=== PATIENT | female | born 1950 | race Caucasian/White ===

== ENCOUNTER → 2017-06-13 | Outpatient (CLI) | payer MEDICARE, OTHER ==
[~2017-06-13] MED LIST: ACET500T68 PO; ASPI-715 PO; ASPI81TA94 PO; CALC-852 PO; CYCL1DRO6 OP; METO25TA23 PO; METO50TA19 PO; MULT-1367 PO; MULT-865 PO; TRAM-420 PO; WARF-18 PO; WARF1TAB63 PO; WARF3TAB43 PO
[2017-06-13 10:03] LABS: INR 2.88
== END ==
LOC: LAB 09:35
PROVIDERS: ATTEND Emergency Medicine
DX: Z51.81 Encounter for therapeutic drug level monitoring (principal); Z79.01 Long term (current) use of anticoagulants
CPT/HCPCS: 36415; 85610

== ENCOUNTER 2017-06-20 10:00 | Outpatient (RCR) | payer MEDICARE, OTHER ==
[2017-03-23 12:02] VITALS: BP 117/78
[2017-03-23 12:12] VITALS: BP 118/80
--- NOTE | 2017-03-23 12:45 | CARDIAC REHAB PLAN OF CARE ---
Physician: Julia Dickson MD Patient is being seen: Jh Mauricio Medical Diagnosis: MVR Date of Initial Evaluation: 2016 Date patient was last seen: SHORT TERM GOALS Short Term Goals Due Date: 04/23/17 Short Term Goals: 67 year old female phase II patient comes to cardiac rehab after having mitral valve replacement on 2016. Patient has known since in her 30's that the Mitral Valve was going to need repaired or replaced at some point. Patient also treated for a tachycardic rhythm with ablation in 2007. Patient is healthy otherwise and will be able to follow the cardiac rehab protocol with caution initially during weight lifting with patient being on a 5 pound upper weight limit post open heart surgery. Patient will maintain a consistent cardio exercise of at least 150 minutes each week of cardio type exercise and will add in weight resistance exercise at least twice a week. Patient will continue to eat heart healthy meals. Short Term Goals Met: Short Term Goals Not Met Due To: SNF GOALS Detention Goal Due Date: 05/23/17 [place] Goals: nursing home goals are to continue to maintain that consistent cardio exercise each week increasing duration and intensity of exercise. Patient will also add in the weight resistance exercise at least twice a week, and maintain heart healthy eating habits. Rolls Baker Goals Met: Detention Goals Not Met Due To: PATIENT'S GOALS Patient Goals Due Date: 04/23/17 Patient Goals: Patient wants to be able to return to running 5K and 10K's. Patient Goals Met: Patient Goals Not Met Due To: Cardiac Rehabilitation Plan of Care Comment: Cardiac rehab staff will monitor, record, and evaluate vitals, ECG, and exercise results to provide the best plan of care for the patient during the 36 visit phase II program. CR staff will educate and motivate the patient during visits for rehab. TAMIKA
[2017-03-25 21:12] VITALS: BP 104/68
[2017-03-25 21:14] VITALS: BP 104/70
[2017-03-28 13:46] VITALS: BP 118/78
[2017-03-28 13:59] VITALS: BP 102/68
[2017-03-30 17:40] VITALS: BP 110/74
[2017-03-30 17:41] VITALS: BP 102/64
[2017-04-01 13:08] VITALS: BP_SYST 116; BP_SYST 118; BP_DIAS 68
[2017-04-04 13:07] VITALS: BP 106/64
[2017-04-04 13:08] VITALS: BP 116/62
[2017-04-06 13:03] VITALS: BP_SYST 116; BP_SYST 126; BP_DIAS 74; BP_DIAS 78
[2017-04-08 17:45] VITALS: BP 110/74
[2017-04-08 17:47] VITALS: BP 114/70
[2017-04-11 17:21] VITALS: BP 112/68
[2017-04-11 17:22] VITALS: BP 122/74
[2017-04-13 17:20] VITALS: BP 120/78
[2017-04-13 17:22] VITALS: BP 110/68
[2017-04-15 13:19] VITALS: BP 128/80
[2017-04-15 13:20] VITALS: BP 118/62
[2017-04-18 12:48] VITALS: BP 110/76
[2017-04-18 12:49] VITALS: BP 116/70
[2017-04-20 12:53] VITALS: BP_SYST 110; BP_SYST 116; BP_DIAS 70; BP_DIAS 76
--- NOTE | 2017-04-21 15:57 | CARDIAC REHAB PLAN OF CARE ---
Physician: Randolph BROWN Patient is being seen: Jh Mauricio Medical Diagnosis: MVR Date of Initial Evaluation: 03/23/17 SHORT TERM GOALS Short Term Goals Due Date: 05/21/17 Short Term Goals: 67 year old female phase II patient comes to cardiac rehab after having mitral valve replacement on 2016. Patient has known since in her 30's that the Mitral Valve was going to need repaired or replaced at some point. Patient also treated for a tachycardic rhythm with ablation in 2007. Patient is healthy otherwise and will be able to follow the cardiac rehab protocol with caution initially during weight lifting with patient being on a 5 pound upper weight limit post open heart surgery. Patient will maintain a consistent cardio exercise of at least 150 minutes each week of cardio type exercise and will add in weight resistance exercise at least twice a week. Patient will continue to eat heart healthy meals. Short Term Goals Met: Patient has made 13 visits to cardiac rehab and completes up to 45 minutes of cardio exercise at MET levels of 4.5-5.3. Patient also includes 2-3 pound dumbbell resistance training. During exercise SPO2 levels are maintained in the 90's on room air and the satellite project site monitor shows a ST with occasional ectopy. Short Term Goals Not Met Due To: APPLICATION SYSTEMS ENGINEER GOALS Assisted Goal Due Date: 06/21/17 Ditcher Goals: watermelon inspector goals are to maintain that consistent cardio exercise each week along with weight resistence type exercise at least twice a week. Patient will continue to eat heart healthy meals. Ditcher Goals Met: Patient has shown increases in duration and intensity of exercise. Assisted Goals Not Met Due To: PATIENT'S GOALS Patient Goals Due Date: 05/21/17 Patient Goals: Patient goals remain to be able to return to running 5 and 10k's. Patient Goals Met: The patient remains motivated by exercise results and is gaining confidence in her health since her valve replacement procedure. Patient Goals Not Met Due To: Cardiac Rehabilitation Plan of Care Comment: Cardiac rehab staff will continue to monitor, record, and evaluate vitals, ECG, and exercise results to provide the best plan of care throughout the phase II program. CR staff will motivate and educate the patient during visits for rehab. TAMIKA
[2017-04-22 13:30] VITALS: BP 108/78
[2017-04-22 13:31] VITALS: BP 110/54
[2017-04-25 17:15] VITALS: BP 122/80
[2017-04-25 17:16] VITALS: BP 104/64
[2017-04-27 17:59] VITALS: BP 104/74
[2017-04-27 18:00] VITALS: BP 98/64
[2017-05-02 13:24] VITALS: BP_SYST 112; BP_SYST 122; BP_DIAS 54; BP_DIAS 60
[2017-05-04 13:11] VITALS: BP 132/78
[2017-05-04 13:12] VITALS: BP 128/64
[2017-05-06 17:30] VITALS: BP 124/80
[2017-05-06 17:31] VITALS: BP 104/60
[2017-05-09 17:16] VITALS: BP 118/78
[2017-05-09 17:17] VITALS: BP 104/78
[2017-05-13 13:08] VITALS: BP_SYST 100; BP_SYST 116; BP_DIAS 64; BP_DIAS 74
[2017-05-16 13:04] VITALS: BP 120/70
[2017-05-16 13:05] VITALS: BP 104/56
[2017-05-18 12:44] VITALS: BP 118/64
[2017-05-18 12:45] VITALS: BP 108/70
[2017-05-23 17:28] VITALS: BP 108/62
[2017-05-23 17:30] VITALS: BP 100/68
--- NOTE | 2017-05-23 18:54 | CARDIAC REHAB PLAN OF CARE ---
Physician: Randolph BROWN Patient is being seen: Jh Mauricio Medical Diagnosis: MVR Date of Initial Evaluation: 03/23/17 SHORT TERM GOALS Short Term Goals Due Date: 06/23/17 Short Term Goals: 67 year old female phase II patient comes to cardiac rehab after having mitral valve replacement on 2016. Patient has known since in her 30's that the Mitral Valve was going to need repaired or replaced at some point. Patient also treated for a tachycardic rhythm with ablation in 2007. Patient is healthy otherwise and will be able to follow the cardiac rehab protocol with caution initially during weight lifting with patient being on a 5 pound upper weight limit post open heart surgery. Patient will maintain a consistent cardio exercise of at least 150 minutes each week of cardio type exercise and will add in weight resistance exercise at least twice a week. Patient will continue to eat heart healthy meals. Short Term Goals Met: Patient has completed 24 visits to cardiac rehab and tolerates 42 minutes of cardio exercise at levels of 4.0-5.7 METs. Patient also includes weight resistance exercise. During exercise SPO2 levels are maintained in the 90's on room air and the bus monitor shows a ST with an occasional PVC and rates up to 116. Short Term Goals Not Met Due To: CARE HOME GOALS Half-Way Goal Due Date: 07/24/17 Pasta Maker Goals: watermelon inspector goals are to remain consistent with following the exercise protocol of at least 150 minutes of a moderate level or 75 minutes at an intense level, along with weight resistance at least twice a week. Patient will also continue to eat heart healthy meals. Pasta Maker Goals Met: Patient has improved duration and intensity of exercise. Pasta Maker Goals Not Met Due To: PATIENT'S GOALS Patient Goals Due Date: 06/23/17 Patient Goals: Patient goals are to return to running 5 and 10k's. Patient Goals Met: Patient has improved cardio health to be able to run a 5k, but the stability of the sternum feels uncertain to the patient when attempting to run. Patient Goals Not Met Due To: Cardiac Rehabilitation Plan of Care Comment: Cardiac Rehab staff will continue to monitor, record, and evaluate vitals, ECG, and exercise results to provide the best plan of care for the patient throughout the 36 visit phase II program. CR staff will educate and motivate the patient during visits for rehab. TAMIKA
[2017-05-25 13:00] VITALS: BP_SYST 102; BP_SYST 90; BP_DIAS 50; BP_DIAS 72
[2017-06-01 13:03] VITALS: BP 112/64
[2017-06-01 13:04] VITALS: BP 100/68
[2017-06-03 18:38] VITALS: BP 108/64
[2017-06-03 18:39] VITALS: BP 90/62
[2017-06-08 13:00] VITALS: BP 94/68
[2017-06-08 13:04] VITALS: BP 92/60
[2017-06-10 13:04] VITALS: BP 116/58
[2017-06-10 13:05] VITALS: BP 102/54
[2017-06-13 13:12] VITALS: BP 118/72
[2017-06-13 13:13] VITALS: BP 116/64
[2017-06-17 18:38] VITALS: BP 104/64
[2017-06-17 18:39] VITALS: BP 98/70
[2017-06-20 13:21] VITALS: BP_SYST 102; BP_SYST 108; BP_DIAS 64
== END 2017-06-21 ==
LOC: CARD 10:00
PROVIDERS: ATTEND Emergency Medicine
DX: Z95.2 Presence of prosthetic heart valve (principal); R42 Dizziness and giddiness
CPT/HCPCS: 93798

== ENCOUNTER 2017-07-04 10:00 | Outpatient (RCR) | payer MEDICARE, OTHER ==
[2017-06-24 13:31] VITALS: BP 120/72
[2017-06-24 13:32] VITALS: BP 106/80
[2017-06-27 13:04] VITALS: BP 122/70
[2017-06-27 13:05] VITALS: BP 108/66
[2017-07-01 17:29] VITALS: BP 108/78
[2017-07-01 17:31] VITALS: BP 108/62
[~2017-07-04 10:00] MED LIST changes: +WARF7.5T32 PO
[2017-07-04 12:45] VITALS: BP 108/70
[2017-07-04 12:46] VITALS: BP 94/68
== END 2017-07-04 13:23 | disposition home or self-care (01) ==
LOC: CARD 10:00
PROVIDERS: ATTEND Emergency Medicine
DX: R42 Dizziness and giddiness (principal); Z95.2 Presence of prosthetic heart valve
CPT/HCPCS: 93798

== ENCOUNTER → 2017-07-14 | Outpatient (CLI) | payer MEDICARE, OTHER ==
[2017-07-14 16:08] LABS: INR 2.34
== END ==
LOC: LAB 15:49
PROVIDERS: ATTEND Emergency Medicine
DX: Z51.81 Encounter for therapeutic drug level monitoring (principal); Z79.01 Long term (current) use of anticoagulants
CPT/HCPCS: 36415; 85610

== ENCOUNTER → 2017-08-11 | Outpatient (CLI) | payer MEDICARE, OTHER ==
[~2017-08-11] MED LIST changes: -WARF-18 PO; +WARF1TAB15 PO; -WARF1TAB63 PO; +WARF3TAB14 PO; -WARF3TAB43 PO; +WARF5TAB23 PO; +WARF7.5T13 PO; -WARF7.5T32 PO
[2017-08-11 10:48] LABS: INR 2.22
== END ==
LOC: LAB 10:17
PROVIDERS: ATTEND Emergency Medicine
DX: Z51.81 Encounter for therapeutic drug level monitoring (principal); Z79.01 Long term (current) use of anticoagulants
CPT/HCPCS: 36415; 85610

== ENCOUNTER → 2017-09-23 | Outpatient (CLI) | payer MEDICARE, OTHER ==
--- NOTE | 2017-09-23 10:17 | RADIOLOGY IMAGING REPORT ---
FACILITY: [facility] PATIENT NAME: Benita Alfred : 1950 MR: [id number] V: [id number] EXAM DATE: ORDERING PHYSICIAN: KIRK BACON TECHNOLOGIST: Location: [facility] [place] Patient: Benita Alfred : 1950 Visit/Account:[id number] Date of Sevice: 09/23/2017 DEXA Scan Clinical history: Osteopenia. Comparison: None available. LUMBAR SPINE: The bone mineral density (BMD) measured from L1-L4 correlates with a Z-score -1.0 and a T-score of -2 .8 which is osteoporosis as defined by the World Health Organization. The corresponding risk of frac ture in the lumbar spine is high compared with a young adult reference population. HIP: Bone mineral density (BMD) measured in the left femoral neck region correlates with a Z-score -0.4 an d a T-score of -2.1 which is osteopenia as defined by the World Health Organization. The correspondi ng risk of fracture in the hip is increased compared with a young adult reference population. Bone mineral density (BMD) measured in the Femoral Neck region measures 0.752 g/cm2. Impression: 1. Lumbar spine: Osteoporosis. 2. Left femoral neck region: Osteopenia. 3. Femoral Neck: Bone Mineral Density is 0.787 g/cm2 The next DEXA scan of this patient should include the following sites: L1-L4 and the left hip. FRAX? WHO Fracture Risk Assessment Tool link: <http://www.shef.ac.uk/FRAX/tool.jsp?locationValue=9> PLEASE NOTE: 1) The World Health Organization defines low BMD as follows: T-score Normal > -1 Osteopenia < -1 and > -2.5 Osteoporosis < -2.5 without fractures Established osteoporosis < -2.5 with fractures 2) In general, you may wish to consider: Diagnosis Treatment Follow-up DEXA Normal BMD Prevention 2-3 years Osteopenia Prevention/therapy 1-2 years Osteoporosis Therapy Yearly 3) Fracture risk estimated from the T-score is more accurate for vertebral fractures (often spontane ous) than for hip fractures. Report Dictated By: David Newell at 09/23/2017 10:12 AM Report E-Signed By: David Newell at 09/23/2017 10:14 AM WSN:[id number]
--- NOTE | 2017-09-23 15:55 | RADIOLOGY IMAGING REPORT ---
FACILITY: [facility] - [place] PATIENT NAME: AKUA SARMIENTO : [id number] MR: [id number] V: [id number] EXAM DATE: ORDERING PHYSICIAN: KIRK BACON TECHNOLOGIST: Cassandra Duffy PROCEDURE:BILATERAL DIGITAL SCREENING MAMMOGRAM WITH CAD ASSISTED INTERPRETATION & 3D TOMOSYNTHESIS COMPARISON:Prior mammograms 09/16/15, 08/01/14, 06/19/13, 04/20/12, 02/17/11. INDICATIONS:SCREENING FINDINGS: Moderately heterogeneous fibroglandular tissue is seen throughout the breasts. The parenchymal pattern has remained stable allowing for difference in mammographic technique & patient positioning. There is no evidence of malignant appearing mass, malignant appearing calcifications or other secondary sign of malignancy in either breast. DIAGNOSTIC CATEGORY 1--NEGATIVE. RECOMMENDATIONS: ROUTINE MAMMOGRAM AND CLINICAL EVALUATION. IMPRESSION: BIRADS 1: Negative No significant abnormality is seen. Dictated by: Shanda Matos M.D. on 09/23/2017 at 10:03 Transcribed by: PREM on 09/23/2017 at 10:08 Approved by: Shanda Matos M.D. on 09/23/2017 at 15:54 [facility]
== END ==
LOC: MAMO 05:33
PROVIDERS: ATTEND Emergency Medicine
DX: Z13.820 Encounter for screening for osteoporosis (principal); Z12.31 Encounter for screening mammogram for malignant neoplasm of breast; M81.0 Age-related osteoporosis without current pathological fracture; M85.88 Other specified disorders of bone density and structure, other site
CPT/HCPCS: 77063; 77067; 77080

== ENCOUNTER → 2017-09-29 | Outpatient (CLI) | payer MEDICARE, OTHER ==
[2017-09-29 15:07] LABS: PLATELET COUNT, AUTOMATED 252 K/uL (150-450)
== END ==
LOC: LAB 14:40
PROVIDERS: ATTEND Emergency Medicine
DX: M81.0 Age-related osteoporosis without current pathological fracture (principal); E83.19 Other disorders of iron metabolism
CPT/HCPCS: 36415; 82306; 82310; 83540; 83550; 83970; 85025